=== PATIENT | female | born 1985 | race Caucasian/White ===

== ENCOUNTER → 2017-01-05 | Outpatient (CLI) | payer MEDICAID | LOC: LABMAIN 14:21 | PROVIDERS: ATTEND Obstetrics & Gynecology | DX: O20.0 Threatened abortion (principal) | CPT/HCPCS: 36415; 84702 ==

== ENCOUNTER → 2017-01-07 | Outpatient (CLI) | payer MEDICAID | END | disposition home or self-care (01) | LOC: LABMAIN 14:02 | PROVIDERS: ATTEND Obstetrics & Gynecology | DX: O20.0 Threatened abortion (principal); Z3A.00 Weeks of gestation of pregnancy not specified | CPT/HCPCS: 36415; 84702 ==

== ENCOUNTER → 2017-02-17 | Outpatient (CLI) | payer MEDICAID ==
[2017-02-17 10:26] LABS: CH 28.2; CHCM 34.9; HCT 35.6 % (34.0-46.0); HDW 2.72; HGB 12.8 gm/dL (11.4-16.0); MCH 29.2 pg (25.0-35.0); MCV 81.1 fL (80.0-100.0); Mean Platelet Volume 7.2; RBC 4.39 m/uL (3.80-5.40); RDW 12.5 % (11.5-15.5); WBC 7.3 k/uL (3.8-10.6)
[2017-02-17 14:28] LABS: Hepatitis B Surface Ag Index 0.05
[2017-02-17 15:48] LABS: Treponemal Ab Non-Reactive (Non-Reactive)
== END | disposition home or self-care (01) ==
LOC: LABWHC1 08:56
PROVIDERS: ATTEND Obstetrics & Gynecology
DX: Z34.90 Encounter for supervision of normal pregnancy, unspecified, unspecified trimester (principal)
CPT/HCPCS: 36415; 82950; 83036; 85027; 86762; 86780; 86850; 86900; 86901; 87086; 87340; 87390

== ENCOUNTER 2017-08-23 07:51 | Inpatient (IN) | payer MEDICAID ==
[2017-08-23] MEDS ORDERED: ceFAZolin IN SWFI 2 GM/20 ML SYRINGE IVP ONE (07:59)
[2017-08-23] MEDS ORDERED: CITRIC ACID-SODIUM CITRATE 15 ML CUP PO ONE (07:59)
[2017-08-23 08:14] VITALS: BMI 29.3
[2017-08-23 08:31] LABS: Basophils % (A) 0 %; Eosinophils # (A) 0.1 k/uL (0-0.7); Eosinophils % (A) 1 %; HCT 37.9 % (34.0-46.0); HGB 13.2 gm/dL (11.4-16.0); Lymphocytes # (A) 1.8 k/uL (1.0-4.8); Lymphocytes % (A) 27 %; MCH 27.7 pg (25.0-35.0); MCHC 34.8 g/dL (31.0-37.0); MCV 79.6 fL (80.0-100.0); Mean Platelet Volume 8.8; Monocytes # (A) 0.3 k/uL (0-1.0); Monocytes % (A) 5 %; Neutrophils # (A) 4.4 k/uL (1.3-7.7); Neutrophils % (A) 65 %; Platelet Count 179 k/uL (150-450); RBC 4.76 m/uL (3.80-5.40); RDW 13.1 % (11.5-15.5); WBC 6.7 k/uL (3.8-10.6)
[2017-08-23] MEDS: LACTATED RINGERS 1,000 ML IV SCH ×2 (09:44→10:11)
[2017-08-23] MEDS ORDERED: LACTATED RINGERS 1,000 ML IV SCH (09:45)
--- NOTE | 2017-08-23 10:19 | P.HPOB ---
History of Present Illness H&P Date: 08/23/17 Chief Complaint: 38-4/7 weeks, twin IUP, vertex/transverse presentation The patient is a 31-year-old 3 para 2 scissors or 2 admitted at 38-3/7 weeks as established by last menstrual period and confirmed by 6 week ultrasound. She is admitted with a known twin intrauterine with the fetus is presenting in vertex/transverse position. This is been the case for the last 6-8 weeks of . She has had no complications with her twin to include labor. She is known to be Rh- and received RhoGAM at 28 weeks. Group B strep status is negative. Obstetrical history: 3 para 2001 with 2 term vaginal deliveries. Current statistics are as listed above with a twin IUP. EDC of 2017 was established by last menstrual period and confirmed by 6 week ultrasound. Laboratory workup demonstrates a blood type of O- with a negative antibody screen. Rubella status is immune. The remainder of the laboratory workup was within normal limits. Early Glucola was within normal limits as was second trimester Glucola. Group B strep status is negative. Gynecologic history: Unremarkable with no history of any infections to include STDs. Review of Systems Review of systems is confined to history of present illness. Past Medical History Past Medical History: No Reported History History of Any Multi-Drug Resistant Organisms: None Reported Past Surgical History: Appendectomy, Orthopedic Surgery Additional Past Surgical History / Comment(s): right ankle with screws and pins. appendix, carcinoid tumor small intestine Past Anesthesia/Blood Transfusion Reactions: No Reported Reaction Past Psychological History: No Psychological Hx Reported Smoking Status: Former smoker Past Alcohol Use History: None Reported Additional Past Alcohol Use History / Comment(s): "smoked intermittent couple years quit 6 years ago" <1/2ppd Past Drug Use History: None Reported - Past Family History Mother Family Medical History: Hypertension Medications and Allergies Home Medications Medication Instructions Recorded Confirmed Type Pnv No.95/Ferrous Fum/Folic AC 1 each PO DAILY 08/22/17 08/22/17 History [ Multivitamin Tablet] Allergies Allergy/AdvReac Type Severity Reaction Status Date / Time No Known Allergies Allergy Verified 08/22/17 15:06 Exam - Vital Signs Vital signs: Vital Signs Temp Pulse Resp BP Pulse Ox 08/23/17 08:02 97.7 F 86 18 127/76 98 Intake and Output 08/22/17 08/23/17 08/23/17 22:59 06:59 14:59 Other: Weight 94.347 kg 90.265 kg Patient Weight 08/24/17 06:59 Weight 90.265 kg In general, this is a well-developed, well-nourished white female in no acute distress. Her heart has a regular rhythm and rate without murmur. Her lungs are clear to auscultation bilaterally in all jansen. Her abdomen is gravid, nondistended, has normal active bowel sounds, is soft, nontender, and without any palpable masses aside from uterine fundus. Her extremities without any cyanosis, clubbing, or significant edema. Digital cervical examination at this time is deferred. Results Result Diagrams: 08/23/17 08:25 Abnormal Lab Results - Last 24 Hours (Table) 08/23/17 Range/Units 08:25 MCV 79.6 L (80.0-100.0) fL Assessment and Plan (1) malposition, delivered, current hospitalization Current Visit: Yes Status: Acute Code(s): O32.9XX0 - MATERNAL CARE FOR MALPRESENTATION OF FETUS, UNSP, UNSP SNOMED Code(s): 903394943 (2) Twin Current Visit: Yes Status: Acute Code(s): O30.009 - TWIN , UNSP NUM PLCNTA & AMNIO SACS, UNSP TRIMESTER SNOMED Code(s): 60829826 Plan: The patient has been extensively counseled regarding the need for delivery if the twin infants are not in vertex/vertex presentation. The second fetus is in transverse presentation. As a result, she will be taken the operating room where she will undergo primary low-transverse section. The risks and complications of been thoroughly discussed and she has understood and agreed to proceed.
[2017-08-23] MEDS ORDERED: OXYTOCIN 10 UNIT/ML 1 ML VIAL ONE (10:48)
[2017-08-23] MEDS ORDERED: PHENYLEPHRINE-0.9% NACL SYG 1 MG/10 ML SYRINGE ONE (10:48)
[2017-08-23] MEDS ORDERED: METOCLOPRAMIDE 5 MG/ML 2 ML VIAL ONE (10:48)
[2017-08-23] MEDS ORDERED: ONDANSETRON 4 MG/2 ML VIAL ONE (10:48)
[2017-08-23] MEDS ORDERED: KETOROLAC 30 MG/ML 1 ML VIAL ONE (10:48)
[2017-08-23] MEDS ORDERED: fentaNYL (PF) 50 MCG/ML 2 ML AMP ONE (10:48)
[2017-08-23] MEDS ORDERED: MORPHINE SULFATE (PF) 0.3 MG/0.3 ML SYR ONE (10:48)
[2017-08-23] MEDS ORDERED: DEXAMETHASONE SOD PHOS (MDV) 100 MG/10 ML VIAL ONE (10:48)
[2017-08-23] MEDS ORDERED: NALBUPHINE 10 MG/ML AMPUL ONE (10:48)
[2017-08-23] MEDS ORDERED: diphenhydrAMINE 50 MG CAP PO PRN (11:56)
[2017-08-23] MEDS ORDERED: SIMETHICONE 80 MG CHEWABLE PO PRN (11:56)
[2017-08-23] MEDS ORDERED: diphenhydrAMINE 25 MG CAP PO PRN (11:56)
[2017-08-23] MEDS ORDERED: NALOXONE 0.4 MG/ML 1 ML VIAL IV PRN ×2 (11:56→13:05)
[2017-08-23] MEDS ORDERED: ONDANSETRON 4 MG/2 ML VIAL IVP PRN (11:56)
[2017-08-23] MEDS ORDERED: ZOLPIDEM 5 MG TAB PO PRN (11:56)
[2017-08-23] MEDS ORDERED: diphenhydrAMINE 50 MG/ML 1 ML VIAL IVP PRN ×2 (11:56)
[2017-08-23] MEDS ORDERED: METOCLOPRAMIDE 5 MG/ML 2 ML VIAL IVP PRN (11:56)
[2017-08-23] MEDS ORDERED: LANOLIN CREAM 5 GM TUBE TOPICAL PRN (11:56)
[2017-08-23] MEDS ORDERED: OXYTOCIN 20 UNITS/1000 ML NS 1,000 ML IV SCH (12:00)
--- NOTE | 2017-08-23 12:09 | P.OP ---
Date of Procedure: 08/23/17 Preoperative Diagnosis: #1. 38-4/7 weeks twin intrauterine #2. Vertex/transverse presentation #3. Rh- Postoperative Diagnosis: Same Procedure(s) Performed: #1. Primary low-transverse section Anesthesia: spinal Surgeon: Cornelius Cabral Vocational Education Teacher #1: Rachelle Malone Estimated Blood Loss (ml): 600 IV fluids (ml): 500 Urine output (ml): 500 Pathology: other (Placenta for both twin A and twin B) Condition: stable Disposition: floor Operative Findings: The patient had been extensively counseled regarding the need for twin B to be delivered by section if not in vertex presentation. She agreed to the procedure as noted above. She is taken the operating room where she was delivered of a viable twin a baby girl weighing 7 lbs. 0 oz. with Apgars of 9 at 1 minute and 9 at 5 minutes delivered in the vertex presentation. Twin B was delivered as a viable male infant weighing 6 lbs. 5 oz. with Apgars of 8 at 1 minute and 8 at 5 minutes again delivered in the vertex presentation. The placentas were delivered manually, intact, and grossly normal with a grossly normal three-vessel cords for each. The uterus, tubes, and ovaries were entirely normal to inspection. Description of Procedure: The patient was prepped and draped in usual fashion after spinal anesthesia was administered by the anesthesiologist. A Pfannenstiel incision was made and extended into the abdominal cavity without difficulty. A 2 cm transverse incision was made in the lower uterine segment well above the level of the bladder flap to enter the uterus at which time clear fluid was noted on twin A. The incision was extended in both directions using the bandage scissors. Twin A's head was noted to be deep within the pelvis and was elevated up and through the incision where the nose and mouth were thoroughly suctioned. The infant was then delivered onto the field where the cord was doubly clamped, cut , and the passed for resuscitative measures with weight and Apgars as noted above. Twin B was then noted to be presenting slightly higher in the uterus but in vertex presentation. He was guided down to the incision at which time the amniotic membranes were ruptured for clear fluid. The head was delivered up and through the incision where the nose and mouth were again thoroughly suctioned. The remainder of the infant was delivered onto the field where the cord was doubly clamped, cut, and the the infant passed for resuscitative measures with weight and Apgars again as noted above. cord blood was collected from each of the 2 cords. The placentas were then delivered manually and intact as noted above. The uterus was exteriorized and the interior cavity of the uterus swept of any remaining placental or membranous fragments. The margins of the incision were grasped with Pagan clamps and the incision closed in 2 layers. The first layer was a running locking stitch of 0 chromic catgut from margin to margin followed by a running imbricating stitch of 0 chromic catgut from margin to margin. There was excellent hemostasis present. The posterior cul-de-sac was suctioned with a guard and the uterine and ovarian findings were normal as noted above. The uterus was replaced within the abdominal cavity and the gutters swept of any remaining blood, fluid, or clot. The incision was reexamined and noted to be hemostatic. The parietal peritoneum was loosely reapproximated and layer of muscles examined and made hemostatic with the Bovie. The fascia was closed with a single running stitch of 0 Vicryl proceeding from one margin to the other. The subcutaneous tissues were irrigated, made hemostatic with the Bovie , and, as they were less than 1 cm in depth, not closed. The skin was reapproximated with a running subcuticular stitch of 4-0 Vicryl followed by half -inch Steri-Strips placed with Mastisol. Estimated blood loss for the entire case was approximately 600 mL. There were no complications. All sponge, instrument, and needle counts were correct. Both mother and infants are resting comfortably in recovery the twin A has been taken to the special care nursery for observation secondary to decreased oxygen saturation.
[2017-08-23] MEDS ORDERED: traMADol 50 MG TAB PO PRN (12:13)
[2017-08-23] MEDS ORDERED: MORPHINE SULFATE 4 MG/ML SYRINGE IVP PRN (13:05)
[2017-08-23] MEDS ORDERED: Rhogam IMMUNE GLOBULIN 1,500 UNIT/1 ML IM ONE (19:15)
[2017-08-23] MEDS: SENNOSIDES-DOCUSATE SODIUM 1 EACH TAB PO SCH (19:57)
[2017-08-23] MEDS: KETOROLAC 30 MG/ML 1 ML VIAL IVP PRN (19:58)
[2017-08-24] MEDS: KETOROLAC 30 MG/ML 1 ML VIAL IVP PRN ×2 (02:03→08:47)
[2017-08-24] MEDS: ACETAMINOPHEN TAB 325 MG TAB PO PRN ×3 (04:17→19:44)
[2017-08-24] MEDS: LACTATED RINGERS 1,000 ML IV SCH ×2 (06:16→06:17)
[2017-08-24 08:33] LABS: Basophils % (A) 0 %; Eosinophils # (A) 0.1 k/uL (0-0.7); Eosinophils % (A) 0 %; HCT 31.6 % (34.0-46.0); Lymphocytes # (A) 2.4 k/uL (1.0-4.8); Lymphocytes % (A) 22 %; MCH 27.9 pg (25.0-35.0); MCHC 34.6 g/dL (31.0-37.0); MCV 80.6 fL (80.0-100.0); Mean Platelet Volume 8.7; Monocytes # (A) 0.5 k/uL (0-1.0); Monocytes % (A) 5 %; Neutrophils # (A) 7.7 k/uL (1.3-7.7); Neutrophils % (A) 71 %; Platelet Count 139 k/uL (150-450); RBC 3.93 m/uL (3.80-5.40); RDW 13.1 % (11.5-15.5); WBC 10.8 k/uL (3.8-10.6)
--- NOTE | 2017-08-24 08:36 | P.PNOBGPC ---
Subjective - Subjective Patient reports: Reports appetite normal, Reports voiding normally, Reports pain well controlled, Reports ambulating normally : doing well Objective - Vital Signs Latest vital signs: Vital Signs Temp Pulse Resp BP Pulse Ox 08/24/17 06:00 12 08/24/17 04:00 98 F 64 16 105/66 98 08/24/17 02:00 14 08/24/17 00:00 97.6 F 68 16 98/63 08/23/17 22:00 14 08/23/17 20:00 97.8 F 78 16 131/77 98 08/23/17 18:00 16 08/23/17 16:05 98.4 F 61 16 113/80 96 08/23/17 13:45 97.1 F L 69 16 113/74 08/23/17 13:15 97.2 F L 68 16 118/76 96 08/23/17 13:05 17 96 08/23/17 12:45 65 17 106/58 95 08/23/17 12:30 71 18 114/67 95 08/23/17 12:15 63 18 105/63 96 08/23/17 12:00 96.9 F L 72 18 107/56 95 08/23/17 11:45 75 18 113/58 94 L Intake and Output 08/23/17 08/24/17 08/24/17 22:59 06:59 14:59 Output Total 3600 800 Balance -3600 -800 Output: Urine 3600 800 Uretheral (Reyes) 1200 Other: # Voids 1 - Exam Extremities: Present: normal Abdomen: Present: normal appearance, soft. Absent: distention, tenderness Incision: Present: normal, dry (Moderate using overnight, now dry), intact Uterus: Present: normal, firm (Uterine fundus as tonic and nontender just below the umbilicus) Assessment and Plan (1) malposition, delivered, current hospitalization Current Visit: Yes Status: Acute Code(s): O32.9XX0 - MATERNAL CARE FOR MALPRESENTATION OF FETUS, UNSP, UNSP SNOMED Code(s): 301604980 (2) Twin Current Visit: Yes Status: Acute Code(s): O30.009 - TWIN , UNSP NUM PLCNTA & AMNIO SACS, UNSP TRIMESTER SNOMED Code(s): 18091569 (3) S/P section Current Visit: Yes Status: Acute Code(s): Z98.891 - HISTORY OF UTERINE SCAR FROM PREVIOUS SURGERY SNOMED Code(s): 154952095 Plan: Continue routine postoperative care. I would anticipate discharge home tomorrow pending no complications with either the patient or either of her twins. I have encouraged ambulation in the halls and have advanced her diet to regular.
[2017-08-24] MEDS: SENNOSIDES-DOCUSATE SODIUM 1 EACH TAB PO SCH ×2 (08:48→19:57)
--- NOTE | 2017-08-24 09:21 | P.PN ---
Progress Note - Text Date: 08/24/2017 Time: 706 The patient is status post section Vital signs stable VAS:0-10 Patient has no complaints of pain. The patient incurred some minimal itching yesterday, this itching is now subsiding. Pain meds to be managed by service.
[2017-08-24 10:42] VITALS: RESP 16
[2017-08-24] MEDS: IBUPROFEN 600 MG TAB PO PRN ×2 (15:59→21:56)
[2017-08-25] MEDS: ACETAMINOPHEN TAB 325 MG TAB PO PRN ×2 (00:05→07:34)
[2017-08-25 01:24] VITALS: TEMP 98.4
[2017-08-25] MEDS: IBUPROFEN 600 MG TAB PO PRN (05:42)
[2017-08-25] MEDS: SENNOSIDES-DOCUSATE SODIUM 1 EACH TAB PO SCH (07:34)
--- NOTE | 2017-08-25 07:34 | P.DS ---
Providers Date of admission: 08/23/17 07:51 Expected date of discharge: 08/25/17 Attending physician: Cornelius Cabral Primary care physician: Sonya Craig - Discharge Diagnosis(es) (1) malposition, delivered, current hospitalization Current Visit: Yes Status: Acute (2) Twin Current Visit: Yes Status: Acute (3) S/P section Current Visit: Yes Status: Acute Hospital Course: The patient is a 31-year-old 3 para 2001 admitted at 38-3/7 weeks by good dating parameters. She is admitted with a known twin gestation with the fetus is in vertex/transverse presentation. She was counseled regarding the concerns for the second fetus being in a non-vertex presentation and agreed to undergo primary low-transverse section. She was taken to the operating room where she was delivered of a viable twin A baby girl weighing 7 lbs. 0 oz. with Apgars of 9 at 1 minute and 9 at 5 minutes followed by a viable twin B baby boy weighing 6 lbs. 5 oz. with Apgars of 8 at 1 minute and 8 at 5 minutes. The patient's postoperative course was entirely unremarkable with vital signs remained stable and her temperature was afebrile throughout. She was deemed stable for discharge by day #2 and was discharged home to follow-up in the office in 2 weeks for an incision check and 6 weeks routinely. Discharge instructions included calling for any significantly increased bleeding or foul-smelling lochia, significantly increased fever or abdominal pain, perineal complaints, breast complaints, incisional complaints, or anything else that concerned her. She was additionally instructed to have nothing in the vagina for at least 6 weeks time to include intercourse. She was last instructed to do no driving until off of all pain medications or 2 weeks' time, whichever came first. She understood all of her instructions and agrees follow up as noted above. Discharge medications included continued vitamins as she has opted to breast-feed. She additionally was provided with a prescription for Ultram 50 mg one by mouth every 4-6 hours as needed when necessary pain, #30 dispensed with no refills. Maternal blood type is O- and cord blood was sent from both infants for evaluation for the necessity of RhoGAM. Rubella status is immune. Discharge hemoglobin and hematocrit were 11.0 and 31.6 respectively. Procedures: #1. Primary low-transverse section, twin delivery Patient Condition at Discharge: Good Plan - Discharge Summary Discharge Rx Participant: Yes New Discharge Prescriptions: No Action Pnv No.95/Ferrous Fum/Folic AC [ Multivitamin Tablet] 1 each PO DAILY Discharge Medication List Pnv No.95/Ferrous Fum/Folic AC [ Multivitamin Tablet] 1 each PO DAILY [History] Follow up Appointment(s)/Referral(s): Cornelius Cabral MD [STAFF PHYSICIAN] - 2 Weeks Discharge Disposition: HOME SELF-CARE
[2017-08-25 07:55] VITALS: BP 121/74; PULSE 75
== END 2017-08-25 11:15 | disposition home or self-care (01) | DRG 766 ==
LOC: 4FBP 07:51
PROVIDERS: ADMIT Obstetrics & Gynecology; ATTEND Obstetrics & Gynecology
PROC: 10D00Z1 Extraction of Products of Conception, Low, Open Approach (ICD-10-PCS; principal; 2017-08-23 11:07)
DX: O30.043 Twin pregnancy, dichorionic/diamniotic, third trimester (principal); Z37.2 Twins, both liveborn; O32.2XX1 Maternal care for transverse and oblique lie, fetus 1; Z3A.38 38 weeks gestation of pregnancy; Z87.891 Personal history of nicotine dependence
CPT/HCPCS: 85025; 85461; 86850; 86900; 86901; 88307

== ENCOUNTER 2019-07-23 07:01 | Day surgery (SDC) | payer MEDICAID ==
[2019-07-19 11:32] VITALS: BMI 25.1
[~2019-07-23 07:01] MED LIST: DEXAMETHASONE SOD PHOSPHATE 10 MG/ML 1 ML VIAL IV ONE; HEPARIN SODIUM,PORCINE 5,000 UNIT/ML 1 ML VIAL SQ ONE; HYDROmorphone 0.5 MG/0.5 ML SYRINGE IVP PRN; LACTATED RINGERS 1,000 ML IV SCH; LIDOCAINE 1% 20 ML VIAL (10MG/ML) FOR IV START INTRADERMA PRN; ONDANSETRON 4 MG/2 ML VIAL IVP ONE; Pre Op ABX Message 1 EACH MISC MISCELLANE ONE
[2019-07-23 07:21] VITALS: RESP 16; TEMP 97.4
--- NOTE | 2019-07-23 07:50 | P.GSHP ---
History of Present Illness H&P Date: 07/23/19 Chief Complaint: Left back lesion 33-year-old female seen in the office in May. Patient had a recent infection at a nevus site left upper back. An I&D was performed for this at that time. The nevus has been there since . Other than the recent infection no significant changes. Concerned about recurrence. Past Medical History Past Medical History: No Reported History History of Any Multi-Drug Resistant Organisms: None Reported Past Surgical History: Appendectomy, Section, Orthopedic Surgery Additional Past Surgical History / Comment(s): right ankle with screws and pins, carcinoid tumor small intestine Past Anesthesia/Blood Transfusion Reactions: No Reported Reaction Smoking Status: Former smoker - Past Family History Mother Family Medical History: Hypertension Medications and Allergies Home Medications Medication Instructions Recorded Confirmed Type Multivitamins, Thera [Multivitamin 1 tab PO DAILY 07/19/19 07/23/19 History (formulary)] Allergies Allergy/AdvReac Type Severity Reaction Status Date / Time No Known Allergies Allergy Verified 07/23/19 07:19 Surgical - Exam Vital Signs Temp Pulse Resp BP Pulse Ox 97.4 F L 77 16 114/75 98 07/23/19 07:18 07/23/19 07:18 07/23/19 07:18 07/23/19 07:18 07/23/19 07:18 Physical exam: General: Well-developed, well-nourished HEENT: Normocephalic, sclerae nonicteric Abdomen: Nontender, nondistended Extremities: No edema, left upper back with 2 x 1.5 cm raised nevus, flesh- colored, no satellite lesions, nontender Neuro: Alert and oriented Assessment and Plan (1) Nevus of back Narrative/Plan: 33-year-old female with atypical nevus left upper back with recent infection. We'll proceed with surgical excision. Risks of bleeding, infection, recurrence, dehiscence, scarring reviewed. She understands and wished to proceed. Current Visit: Yes Status: Acute Code(s): D22.5 - MELANOCYTIC NEVI OF TRUNK SNOMED Code(s): 55364141
[2019-07-23] MEDS ORDERED: MIDAZOLAM 2 MG/2 ML VIAL ONE (08:08)
[2019-07-23] MEDS ORDERED: PROPOFOL 10 MG/ML 20 ML VIAL IV ONE (08:08)
[2019-07-23] MEDS ORDERED: fentaNYL (PF) 50 MCG/ML 2 ML AMP ONE (08:08)
[2019-07-23] MEDS ORDERED: LIDOCAINE 1% INJ 10MG/ML (20 ML MDV) ONE (08:08)
[2019-07-23] MEDS ORDERED: BUPIVACAINE (PF) 0.25% 30 ML VIAL SQ ONE ×2 (08:27→08:47)
[2019-07-23] MEDS ORDERED: SODIUM CHLORIDE 0.9% 100 ML with ceFAZolin 2,000 MG IV ONE ×2 (08:29)
[2019-07-23] MEDS ORDERED: BACITRACIN OINT 1 EACH PACKET TOPICAL ONE (08:47)
[2019-07-23] MEDS ORDERED: HYDROcodone/APAP 5-325MG 1 EACH TAB PO PRN (08:57)
[2019-07-23] MEDS ORDERED: NALOXONE 0.4 MG/ML 1 ML VIAL IV PRN (08:57)
--- NOTE | 2019-07-23 09:01 | P.PCN ---
Date of Procedure: 07/23/19 Procedure(s) Performed: PREOPERATIVE DIAGNOSIS: Left back lesion POSTOPERATIVE DIAGNOSIS: Same PROCEDURE: Excision left back lesion, intermediate closure 2.5 cm SURGEON: Katie EBL: 5 mL ANESTHESIA: Sedation COMPLICATIONS: None OPERATIVE PROCEDURE: The patient was placed in the right decubitus position. The patient's left upper back was prepped and draped in usual sterile fashion. The tissues around the lesion were localized. An elliptical incision was made around the mass. The subcutaneous tissues were dissected sharply. This lesion measured 2.5 x 1.5 cm. This was sent to pathology. Flaps are raised in the deep subcutaneous layers. The subcutaneous tissues were then reapproximated using 3-0 Vicryl sutures. The skin was then reapproximated using interrupted simple and mattress 4-0 nylon sutures. Sterile dressings were applied. DISPOSITION: Stable to recovery room
[2019-07-23 09:27] VITALS: BP 103/71; PULSE 64
== END 2019-07-23 09:33 | disposition home or self-care (01) ==
LOC: OR 07:01
PROVIDERS: ATTEND Surgery
DX: Q82.5 Congenital non-neoplastic nevus (principal); Z90.49 Acquired absence of other specified parts of digestive tract; Z98.891 History of uterine scar from previous surgery; Z98.890 Other specified postprocedural states; Z87.891 Personal history of nicotine dependence; Z86.012 Personal history of benign carcinoid tumor; Z82.49 Family history of ischemic heart disease and other diseases of the circulatory system
CPT/HCPCS: 81025; 88305; 11403; 12031; J2250; J1644; J1100; J2405; J0690; J2001; J3010; J2704

== ENCOUNTER → 2020-09-25 | Outpatient (CLI) | payer MEDICAID | END | disposition home or self-care (01) | LOC: LABMAIN 22:40 | PROVIDERS: ATTEND Emergency Medicine | DX: U07.1 COVID-19 (principal) | CPT/HCPCS: 87635 ==

== ENCOUNTER → 2022-01-25 | Outpatient (CLI) | payer MEDICAID | END | disposition home or self-care (01) | LOC: LABMAIN 22:24 | PROVIDERS: ATTEND Emergency Medicine | DX: Z20.822 Contact with and (suspected) exposure to COVID-19 (principal) | CPT/HCPCS: 87635 ==

== ENCOUNTER 2023-06-30 21:24 | Emergency (ER) | payer MEDICAID ==
[2023-06-30 21:38] VITALS: BP 139/85; PULSE 105; RESP 20; TEMP 99.3
[2023-06-30] MEDS ORDERED: KETOROLAC 15 MG/ML 1 ML VIAL IVP STA (21:39)
[2023-06-30] MEDS ORDERED: SODIUM CHLORIDE 0.9% 500 ML 500 ML IV STA (21:39)
--- NOTE | 2023-06-30 21:57 | ED ---
Abdominal Pain HPI - General Chief Complaint: Abdominal Pain Stated Complaint: Right flank pain Time Seen by Provider: 06/30/23 21:34 Source: patient Mode of arrival: ambulatory Limitations: no limitations - History of Present Illness Initial Comments: Is a 37-year-old woman who presents to have evaluation for right flank pain. The patient states that there were some mild symptoms going back a few days, but it became much worse early today. Patient states that she also has noticed couple days of having some mild dysuria at the end of urination. Patient has not noted fever or chills. No nausea, vomiting, diarrhea. MD Complaint: flank pain -: days(s) Location: R flank Radiation: none Migration to: no migration Severity: moderate Quality: aching Consistency: constant Improves With: nothing Worsens With: nothing Associated Symptoms: dysuria - Related Data Home Medications Medication Instructions Recorded Confirmed Multivitamins, Thera [Multivitamin 1 tab PO DAILY 07/19/19 07/23/19 (formulary)] Previous Rx's Medication Instructions Recorded Cephalexin [Keflex] 500 mg PO Q6HR #28 cap 06/30/23 Allergies Allergy/AdvReac Type Severity Reaction Status Date / Time No Known Allergies Allergy Verified 06/30/23 21:32 Review of Systems ROS Statement: Those systems with pertinent positive or pertinent negative responses have been documented in the HPI. ROS Other: All systems not noted in ROS Statement are negative. Constitutional: Denies: fever, chills Respiratory: Denies: cough, dyspnea Cardiovascular: Denies: chest pain, palpitations Gastrointestinal: Reports: abdominal pain. Denies: nausea, vomiting, diarrhea, constipation Genitourinary: Reports: dysuria. Denies: frequency, hematuria, abnormal menses Musculoskeletal: Denies: back pain Skin: Denies: rash Neurological: Denies: headache, weakness, numbness Past Medical History Past Medical History: No Reported History History of Any Multi-Drug Resistant Organisms: None Reported Past Surgical History: Appendectomy, Section, Orthopedic Surgery Additional Past Surgical History / Comment(s): right ankle with screws and pins, carcinoid tumor small intestine Past Anesthesia/Blood Transfusion Reactions: No Reported Reaction Past Psychological History: No Psychological Hx Reported Smoking Status: Never smoker Past Alcohol Use History: None Reported Past Drug Use History: None Reported - Past Family History Mother Family Medical History: Hypertension General Exam Limitations: no limitations General appearance: alert, in no apparent distress Head exam: Present: atraumatic, normocephalic Eye exam: Present: normal appearance. Absent: scleral icterus, conjunctival injection ENT exam: Present: normal oropharynx Neck exam: Present: normal inspection Respiratory exam: Present: normal lung sounds bilaterally. Absent: respiratory distress, wheezes, rales, rhonchi, stridor Cardiovascular Exam: Present: regular rate, normal rhythm, normal heart sounds. Absent: systolic murmur, diastolic murmur, rubs, gallop GI/Abdominal exam: Present: soft. Absent: distended, tenderness, guarding, rebound, rigid, mass Extremities exam: Present: normal inspection, normal capillary refill. Absent: pedal edema, calf tenderness Back exam: Present: normal inspection, CVA tenderness (R). Absent: CVA tenderness (L) Neurological exam: Present: alert, normal gait Skin exam: Present: warm, dry, intact, normal color. Absent: rash Course Vital Signs 06/30/23 21:30 Temperature 99.3 F Pulse Rate 105 H Respiratory 20 Rate Blood Pressure 139/85 O2 Sat by Pulse 98 Oximetry Medical Decision Making - Medical Decision Making Was pt. sent in by a medical professional or institution (, PA, TRAFFIC ENGINEER, urgent care, hospital, or fdc...) When possible be specific @ -[No] Did you speak to anyone other than the patient for history (EMS, parent, family, police, friend...)? What history was obtained from this source @ -[No] Did you review nursing and triage notes (agree or disagree)? Why? @ -[I reviewed and agree with nursing and triage notes] Were old charts reviewed (outside hosp., previous admission, EMS record, old EKG, old radiological studies, urgent care reports/EKG's, fdc records)? Report findings @ -[No old charts were reviewed] Differential Diagnosis (chest pain, altered mental status, abdominal pain women, abdominal pain men, vaginal bleeding, weakness, fever, dyspnea, syncope, headache, dizziness, GI bleed, back pain, seizure, CVA, palpatations, mental health, musculoskeletal)? @ -[Differential Abdominal Pain Women: Appendicitis, Cholecystitis, diverticulosis, ischemic bowel, pancreatitis, hepatitis, UTI, gastroenteritis, AAA, incarcerated hernia, bowel obstruction, constipation, inflammatory bowel, hepatitis, peptic ulcer disease, splenic i nfarction, perforated viscus, vulvitis, ovarian torsion, PID, kidney stone, placenta abruption, this is not meant to be an all-inclusive list EKG interpreted by me (3pts min.). @ -[As above] X-rays interpreted by me (1pt min.). @ -[None done] CT interpreted by me (1pt min.). @ -[None done] U/S interpreted by me (1pt. min.). @ -[None done] What testing was considered but not performed or refused? (CT, X-rays, U/S, labs)? Why? @ -[None] What meds were considered but not given or refused? Why? @ -[None] Did you discuss the management of the patient with other professionals (professionals i.e. , PA, TRAFFIC ENGINEER, lab, RT, psych nurse, psychotherapist social worker, seconds handler, teacher, account officer, case preparer and liner)? Give summary @ -[No] Was smoking cessation discussed for >3mins.? @ -[No] Was critical care preformed (if so, how long)? @ -[No] Were there social determinants of health that impacted care today? How? (Homelessness, low income, unemployed, alcoholism, drug addiction, transportation, low edu. Level, literacy, decrease access to med. care, assisted, rehab)? @ -[No] Was there de-escalation of care discussed even if they declined (Discuss DNR or withdrawal of care, Hospice)? DNR status @ -[No] What co-morbidities impacted this encounter? (DM, HTN, Smoking, COPD, CAD, Can cer, CVA, ARF, Chemo, Hep., AIDS, mental health diagnosis, sleep apnea, morbid obesity)? @ -[None] Was patient admitted / discharged? Hospital course, mention meds given and route, prescriptions, significant lab abnormalities, going to OR and other pertinent info. @ -[Patient is 37-year-old woman presenting with history and physical strongly suggestive of pyelonephritis, the workup consistent with this. The patient is started on antibiotic treatment. We discussed having CT to rule out stone, but at this point patient not presenting like kidney stone. We discussed that she must return to have imaging if there is not significant improvement over the course of the day or if there is any worsening. Undiagnosed new problem with uncertain prognosis? @ -[No] Drug Therapy requiring intensive monitoring for toxicity (Heparin, Nitro, Insulin, Cardizem)? @ -[No] Were any procedures done? @ -[No] Diagnosis/symptom? @ -[Acute pyelonephritis Acute, or Chronic, or Acute on Chronic? @ -[Acute Uncomplicated (without systemic symptoms) or Complicated (systemic symptoms)? @ -[Uncomplicated Side effects of treatment? @ -[No] Exacerbation, Progression, or Severe Exacerbation? @ -[No] Poses a threat to life or bodily function? How? (Chest pain, [place], [place], pneumonia, PE, COPD, DKA, ARF, appy, cholecystitis, CVA, Diverticulitis, Homicidal, Suicidal, threat to staff... and all critical care pts) @ -[There is low likelihood an otherwise healthy patient however there does remain small risk of morbidity and mortality associated with pyelonephritis therefore close follow-up and return parameters discussed - Lab Data Result diagrams: 06/30/23 21:56 06/30/23 21:56 Lab Results 06/30/23 06/30/23 06/30/23 Range/Units 21:56 21:56 21:56 WBC 11.4 H (3.8-10.6) k/uL RBC 5.07 (3.80-5.40) m/uL Hgb 14.3 (11.4-16.0) gm/dL Hct 41.2 (34.0-46.0) % MCV 81.4 (80.0-100.0) fL MCH 28.3 (25.0-35.0) pg MCHC 34.8 (31.0-37.0) g/dL RDW 12.1 (11.5-15.5) % Plt Count 203 (150-450) k/uL MPV 7.5 Neutrophils % 72 % Lymphocytes % 22 % Monocytes % 4 % Eosinophils % 1 % Basophils % 0 % Neutrophils # 8.1 H (1.3-7.7) k/uL Lymphocytes # 2.5 (1.0-4.8) k/uL Monocytes # 0.5 (0-1.0) k/uL Eosinophils # 0.1 (0-0.7) k/uL Basophils # 0.0 (0-0.2) k/uL Sodium 139 (137-145) mmol/L Potassium 3.9 (3.5-5.1) mmol/L Chloride 102 (98-107) mmol/L Carbon Dioxide 24 (22-30) mmol/L Anion Gap 13 mmol/L BUN 16 (7-17) mg/dL Creatinine 0.70 (0.52-1.04) mg/dL Est GFR (CKD-EPI)AfAm >90 (>60 ml/min/1.73 sqM) Est GFR (CKD-EPI)NonAf >90 (>60 ml/min/1.73 sqM) Glucose 104 H (74-99) mg/dL Plasma Lactic Acid [place]min 1.2 (0.7-2.0) mmol/L Calcium 9.5 (8.4-10.2) mg/dL Total Bilirubin 0.5 (0.2-1.3) mg/dL AST 24 (14-36) U/L ALT 24 (4-34) U/L Alkaline Phosphatase 73 (38-126) U/L Total Protein 7.3 (6.3-8.2) g/dL Albumin 4.3 (3.5-5.0) g/dL Amylase 67 (30-110) U/L Lipase 128 (23-300) U/L Urine Color Urine Appearance (Clear) Urine pH (5.0-8.0) Ur Specific [place] (1.001-1.035) Urine Protein (Negative) Urine Glucose (UA) (Negative) Urine Ketones (Negative) Urine Blood (Negative) Urine Nitrite (Negative) Urine Bilirubin (Negative) Urine Urobilinogen (<2.0) mg/dL Ur Leukocyte Esterase (Negative) Urine RBC (0-5) /hpf Urine WBC (0-5) /hpf Ur Squamous Epith Cells (0-4) /hpf Urine Bacteria (None) /hpf Hyaline Casts (0-2) /lpf Urine Mucus (None) /hpf Urine HCG, Qual (Not Detectd) 06/30/23 06/30/23 Range/Units 21:56 21:56 WBC (3.8-10.6) k/uL RBC (3.80-5.40) m/uL Hgb (11.4-16.0) gm/dL Hct (34.0-46.0) % MCV (80.0-100.0) fL MCH (25.0-35.0) pg MCHC (31.0-37.0) g/dL RDW (11.5-15.5) % Plt Count (150-450) k/uL MPV Neutrophils % % Lymphocytes % % Monocytes % % Eosinophils % % Basophils % % Neutrophils # (1.3-7.7) k/uL Lymphocytes # (1.0-4.8) k/uL Monocytes # (0-1.0) k/uL Eosinophils # (0-0.7) k/uL Basophils # (0-0.2) k/uL Sodium (137-145) mmol/L Potassium (3.5-5.1) mmol/L Chloride (98-107) mmol/L Carbon Dioxide (22-30) mmol/L Anion Gap mmol/L BUN (7-17) mg/dL Creatinine (0.52-1.04) mg/dL Est GFR (CKD-EPI)AfAm (>60 ml/min/1.73 sqM) Est GFR (CKD-EPI)NonAf (>60 ml/min/1.73 sqM) Glucose (74-99) mg/dL Plasma Lactic Acid [place] (0.7-2.0) mmol/L Calcium (8.4-10.2) mg/dL Total Bilirubin (0.2-1.3) mg/dL AST (14-36) U/L ALT (4-34) U/L Alkaline Phosphatase (38-126) U/L Total Protein (6.3-8.2) g/dL Albumin (3.5-5.0) g/dL Amylase (30-110) U/L Lipase (23-300) U/L Urine Color Yellow Urine Appearance Clear (Clear) Urine pH 7.0 (5.0-8.0) Ur Specific [place] 1.012 (1.001-1.035) Urine Protein 1+ H (Negative) Urine Glucose (UA) Negative (Negative) Urine Ketones Negative (Negative) Urine Blood Moderate H (Negative) Urine Nitrite Negative (Negative) Urine Bilirubin Negative (Negative) Urine Urobilinogen <2.0 (<2.0) mg/dL Ur Leukocyte Esterase Large H (Negative) Urine RBC 44 H (0-5) /hpf Urine WBC >182 H (0-5) /hpf Ur Squamous Epith Cells 3 (0-4) /hpf Urine Bacteria Many H (None) /hpf Hyaline Casts 3 H (0-2) /lpf Urine Mucus Rare H (None) /hpf Urine HCG, Qual Not Detected (Not Detectd) Disposition Clinical Impression: Urinary tract infection Disposition: HOME SELF-CARE Condition: Good Prescriptions: Cephalexin [Keflex] 500 mg PO Q6HR #28 cap Is patient prescribed a controlled substance at d/c from ED?: No Referrals: None,Stated [Primary Care Provider] - 1-2 days
[2023-06-30 22:11] LABS: Basophils % (A) 0 %; Eosinophils # (A) 0.1 k/uL (0-0.7); Eosinophils % (A) 1 %; HCT 41.2 % (34.0-46.0); HGB 14.3 gm/dL (11.4-16.0); Lymphocytes # (A) 2.5 k/uL (1.0-4.8); Lymphocytes % (A) 22 %; MCH 28.3 pg (25.0-35.0); MCHC 34.8 g/dL (31.0-37.0); MCV 81.4 fL (80.0-100.0); Mean Platelet Volume 7.5; Monocytes # (A) 0.5 k/uL (0-1.0); Monocytes % (A) 4 %; Neutrophils # (A) 8.1 k/uL (1.3-7.7); Neutrophils % (A) 72 %; Platelet Count 203 k/uL (150-450); RBC 5.07 m/uL (3.80-5.40); RDW 12.1 % (11.5-15.5); WBC 11.4 k/uL (3.8-10.6)
[2023-06-30 22:17] LABS: Appearance,Urine Clear (Clear); Bacteria,Urine Many /hpf; Bilirubin,Urine Negative (Negative); Blood,Urine Moderate (Negative); Color,Urine Yellow; Glucose,Urine (UA) Negative (Negative); Hyaline Casts,Urine 3 /lpf (0-2); Ketones,Urine Negative (Negative); Leukocyte Esterase,Urine Large (Negative); Mucus,Urine Rare /hpf; Nitrite,Urine Negative (Negative); Protein,Urine 1+ (Negative); RBC,Urine 44 /hpf (0-5); Specific Gravity,Urine 1.012 (1.001-1.035); Squamous Epithelial Cell,Urine 3 /hpf (0-4); Urobilinogen,Urine <2.0 mg/dL (<2.0); WBC,Urine >182 /hpf (0-5)
[2023-06-30 22:20] LABS: ALT 24 U/L (4-34); AST 24 U/L (14-36); African American GFR (CKD) >90 (>60 ml/min/1.73 sqM); Albumin 4.3 g/dL (3.5-5.0); Alkaline Phosphatase 73 U/L (38-126); Amylase 67 U/L (30-110); Anion Gap 13 mmol/L; Blood Urea Nitrogen 16 mg/dL (7-17); Calcium 9.5 mg/dL (8.4-10.2); Carbon Dioxide 24 mmol/L (22-30); Chloride 102 mmol/L (98-107); Glucose 104 mg/dL (74-99); Lipase 128 U/L (23-300); Non-African American GFR(CKD) >90 (>60 ml/min/1.73 sqM); Potassium 3.9 mmol/L (3.5-5.1); Sodium 139 mmol/L (137-145); Total Bilirubin 0.5 mg/dL (0.2-1.3); Total Protein 7.3 g/dL (6.3-8.2)
== END 2023-07-01 00:06 | disposition home or self-care (01) ==
LOC: EC 21:24
DX: N39.0 Urinary tract infection, site not specified (principal)
CPT/HCPCS: 36415; 80053; 82150; 83605; 83690; 85025; 81001; 81025; 87086; 87077; 87186; 99284; 96365; 96375; 96361; J0696; J1885

== ENCOUNTER 2024-04-17 22:34 | Emergency (ER) | payer MEDICAID ==
[2024-04-17 22:39] VITALS: BP 133/77; PULSE 84; RESP 18; TEMP 98.7
[2024-04-17 23:18] LABS: Basophils # (A) 0.1 k/uL (0-0.2); Basophils % (A) 1 %; Eosinophils # (A) 0.1 k/uL (0-0.7); Eosinophils % (A) 1 %; HCT 43.6 % (34.0-46.0); HGB 14.6 gm/dL (11.4-16.0); Lymphocytes # (A) 3.2 k/uL (1.0-4.8); Lymphocytes % (A) 31 %; MCH 27.7 pg (25.0-35.0); MCHC 33.5 g/dL (31.0-37.0); MCV 82.7 fL (80.0-100.0); Mean Platelet Volume 7.6; Monocytes # (A) 0.4 k/uL (0-1.0); Monocytes % (A) 4 %; Neutrophils # (A) 6.3 k/uL (1.3-7.7); Neutrophils % (A) 61 %; Platelet Count 251 k/uL (150-450); RBC 5.28 m/uL (3.80-5.40); RDW 12.4 % (11.5-15.5); WBC 10.2 k/uL (3.8-10.6)
[2024-04-17 23:34] LABS: ALT 23 U/L (4-34); AST 28 U/L (14-36); African American GFR (CKD) >90 (>60 ml/min/1.73 sqM); Albumin 4.5 g/dL (3.5-5.0); Alkaline Phosphatase 59 U/L (38-126); Anion Gap 5 mmol/L; Blood Urea Nitrogen 12 mg/dL (7-17); Calcium 9.4 mg/dL (8.4-10.2); Carbon Dioxide 25 mmol/L (22-30); Chloride 109 mmol/L (98-107); Glucose 90 mg/dL (74-99); Non-African American GFR(CKD) >90 (>60 ml/min/1.73 sqM); Potassium 4.3 mmol/L (3.5-5.1); Sodium 139 mmol/L (137-145); Total Bilirubin 0.5 mg/dL (0.2-1.3); Total Protein 7.2 g/dL (6.3-8.2)
[2024-04-17 23:34] LABS: Amorphous Sediment,Urine Occasional /hpf; Appearance,Urine Cloudy (Clear); Bacteria,Urine Occasional /hpf; Bilirubin,Urine Negative (Negative); Blood,Urine Negative (Negative); Color,Urine Light Yellow; Glucose,Urine (UA) Negative (Negative); Hyaline Casts,Urine 1 /lpf (0-2); Ketones,Urine Negative (Negative); Leukocyte Esterase,Urine Negative (Negative); Mucus,Urine Moderate /hpf; Nitrite,Urine Negative (Negative); Protein,Urine Trace (Negative); RBC,Urine 1 /hpf (0-5); Specific Gravity,Urine 1.018 (1.001-1.035); Squamous Epithelial Cell,Urine 10 /hpf (0-4); Urobilinogen,Urine <2.0 mg/dL (<2.0); WBC,Urine 4 /hpf (0-5)
[2024-04-17] MEDS: KETOROLAC 15 MG/ML 1 ML VIAL IVP STA (23:44)
--- NOTE | 2024-04-18 00:27 | CT ---
EXAMINATION TYPE: CT abdomen pelvis w con DATE OF EXAM: 04/18/2024 HISTORY: Pt presents to ED due to R flank pain. Pt states it started 8 days ago. Pt just finished ant ibiotics (keflex) and it is not any better. Pt presents to ED due to R flank pain. Pt states it start ed 8 days ago. Pt just finished antibiotics (keflex) and it is not any better. CT DLP: 831mGycm Automated Exposure Control for Dose Reduction was Utilized. CONTRAST: CT scan of the abdomen and pelvis is performed with IV Contrast, patient injected with 100 mL of Isov ue 300. COMPARISON: Prior CT 2010 FINDINGS: LUNG BASES: No significant abnormality is appreciated. LIVER/GB: The gallbladder is contracted on current study without surrounding fluid or fat stranding. PANCREAS: No significant abnormality is seen. SPLEEN: No significant abnormality is seen. ADRENALS: No significant abnormality is seen. KIDNEYS: Symmetric cortical medullary uptake and excretion without Hydronephrosis identified bilatera lly. BOWEL: Surgical changes at base of cecum are redemonstrated. No abnormal small or large bowel dilatat ion. UTERUS/ADNEXA: Anteverted uterus. LYMPH NODES: A few prominent but subcentimeter lymph nodes throughout the central mesentery. Slight s wirling is noted near axial image 40. Cannot rule out internal hernia. OSSEOUS STRUCTURES: No significant abnormality is seen. OTHER: No significant additional abnormality is seen. IMPRESSION: No significant acute finding is seen to account for patient's clinical symptoms of right- sided flank pain. [facility], , 04/18/2024 12:24 AM
--- NOTE | 2024-04-18 00:51 | ED ---
General Adult HPI - General Chief complaint: Urogenital Stated complaint: flank pain Time Seen by Provider: 04/17/24 22:41 Source: patient Limitations: no limitations - History of Present Illness Initial comments: This patient is a 38-year-old woman who presents with right flank pain. Patient states she was having symptoms similar to this a little over a week ago, and was given course of Keflex for suspected urinary tract infection. Patient states that the symptoms had improved while she was taking the antibiotic but then after she finished the medication the symptoms recurred. Patient has also been feeling warm like she may have a fever. She has not noted vomiting or diarrhea. No symptoms to the chest or to the legs. Onset/Timin -: week(s) Location: back, abdomen, right Radiation: non-radiation Quality: aching Consistency: constant Improves with: none Worsens with: none Associated Symptoms: fever/chills Treatments Prior to Arrival: other (Course of Keflex) - Related Data Home Medications Medication Instructions Recorded Confirmed Multivitamins, Thera [Multivitamin 1 tab PO DAILY 07/19/19 07/23/19 (formulary)] Previous Rx's Medication Instructions Recorded Cephalexin [Keflex] 500 mg PO Q6HR #28 cap 06/30/23 Nitrofurantoin Monohyd/M-Cryst 100 mg PO Q12HR #14 cap 01/11/24 [Macrobid] Allergies Allergy/AdvReac Type Severity Reaction Status Date / Time No Known Allergies Allergy Verified 04/17/24 22:35 Review of Systems ROS Statement: Those systems with pertinent positive or pertinent negative responses have been documented in the HPI. ROS Other: All systems not noted in ROS Statement are negative. Constitutional: Reports: fever. Denies: chills, weakness Respiratory: Denies: cough, dyspnea Cardiovascular: Denies: chest pain, palpitations, edema Gastrointestinal: Reports: as per HPI, abdominal pain. Denies: nausea, vomiting, diarrhea, melena, hematochezia Genitourinary: Denies: dysuria, frequency, hematuria, discharge, abnormal menses Musculoskeletal: Denies: back pain Skin: Denies: rash Neurological: Denies: headache, weakness Past Medical History Past Medical History: No Reported History History of Any Multi-Drug Resistant Organisms: None Reported Past Surgical History: Appendectomy, Section, Orthopedic Surgery Additional Past Surgical History / Comment(s): right ankle with screws and pins, carcinoid tumor small intestine Past Anesthesia/Blood Transfusion Reactions: No Reported Reaction Past Psychological History: No Psychological Hx Reported Smoking Status: Never smoker Past Alcohol Use History: None Reported Past Drug Use History: None Reported - Past Family History Mother Family Medical History: Hypertension General Exam Limitations: no limitations General appearance: alert, in no apparent distress Head exam: Present: atraumatic, normocephalic Eye exam: Present: normal appearance. Absent: scleral icterus, conjunctival injection Neck exam: Present: normal inspection Respiratory exam: Present: normal lung sounds bilaterally. Absent: respiratory distress, wheezes, rales, rhonchi, stridor, accessory muscle use Cardiovascular Exam: Present: regular rate, normal rhythm, normal heart sounds. Absent: systolic murmur, diastolic murmur, rubs, gallop GI/Abdominal exam: Present: soft, tenderness (Mild right upper abdominal tenderness, no rebound or guarding). Absent: distended, guarding, rebound, rigid, mass, pulsatile mass, hernia Extremities exam: Present: normal inspection, normal capillary refill. Absent: pedal edema, calf tenderness Back exam: Present: normal inspection. Absent: CVA tenderness (R), CVA tenderness (L) Neurological exam: Present: alert Skin exam: Present: warm, dry, intact, normal color. Absent: rash Course Vital Signs 04/17/24 22:36 Temperature 98.7 F Pulse Rate 84 Respiratory 18 Rate Blood Pressure 133/77 O2 Sat by Pulse 98 Oximetry Medical Decision Making - Medical Decision Making Patient is a 38-year-old woman with right flank pain. The patient's urinalysis unremarkable. There is still is some persistent right-sided pain following ketorolac. Patient sent for CT scan given the persistence of the symptoms. The CT scan suggestive of possible internal hernia but no obstruction. Was pt. sent in by a medical professional or institution (, PA, MAINTENANCE ASSOCIATE, urgent care, hospital, or snf...) When possible be specific @ -[No] Did you speak to anyone other than the patient for history (EMS, parent, family, police, friend...)? What history was obtained from this source @ -[No] Did you review nursing and triage notes (agree or disagree)? Why? @ -[I reviewed and agree with nursing and triage notes] Were old charts reviewed (outside hosp., previous admission, EMS record, old EKG, old radiological studies, urgent care reports/EKG's, snf records)? Report findings @ -[No old charts were reviewed] Differential Diagnosis (chest pain, altered mental status, abdominal pain women, abdominal pain men, vaginal bleeding, weakness, fever, dyspnea, syncope, headache, dizziness, GI bleed, back pain, seizure, CVA, palpatations, mental health, musculoskeletal)? @ -[Differential Abdominal Pain Women: Appendicitis, Cholecystitis, diverticulosis, ischemic bowel, pancreatitis, hepat itis, UTI, gastroenteritis, AAA, incarcerated hernia, bowel obstruction, constipation, inflammatory bowel, hepatitis, peptic ulcer disease, splenic infarction, perforated viscus, vulvitis, ovarian torsion, PID, kidney stone, placenta abruption, this is not meant to be an all-inclusive list EKG interpreted by me (3pts min.). @ -[As above] X-rays interpreted by me (1pt min.). @ -[None done] CT interpreted by me (1pt min.). @ -[ U/S interpreted by me (1pt. min.). @ -[None done] What testing was considered but not performed or refused? (CT, X-rays, U/S, labs)? Why? @ -[None] What meds were considered but not given or refused? Why? @ -[None] Did you discuss the management of the patient with other professionals (professionals i.e. , PA, MAINTENANCE ASSOCIATE, lab, RT, psych nurse, social media marketer, shift supervisor melting, teacher, quarantine officer, case mgr)? Give summary @ -[No] Was smoking cessation discussed for >3mins.? @ -[No] Was critical care preformed (if so, how long)? @ -[No] Were there social determinants of health that impacted care today? How? (Homelessness, low income, unemployed, alcoholism, drug addiction, transportation, low edu. Level, literacy, decrease access to med. care, nursing home, rehab)? @ -[No] Was there de-escalation of care discussed even if they declined (Discuss DNR or withdrawal of care, Hospice)? DNR status @ -[No] What co-morbidities impacted this encounter? (DM, HTN, Smoking, COPD, CAD, Cancer, CVA, ARF, Chemo, Hep., AIDS, mental health diagnosis, sleep apnea, morbid obesity)? @ -[History of carcinoid tumor Was patient admitted / discharged? Hospital course, mention meds given and route, prescriptions, significant lab abnormalities, going to OR and other pertinent info. @ -[Patient is 38-year-old woman with flank pain. The patient's workup does reveal CT with possibility of internal hernia. Patient with no gastro intestinal signs or symptoms. Will follow-up with her surgeon. Discussed appropriate follow-up and return parameters Undiagnosed new problem with uncertain prognosis? @ -[No] Drug Therapy requiring intensive monitoring for toxicity (Heparin, Nitro, Insulin, Cardizem)? @ -[No] Were any procedures done? @ -[No] Diagnosis/symptom? @ -[Acute flank pain Acute, or Chronic, or Acute on Chronic? @ -[Acute flank pain Uncomplicated (without systemic symptoms) or Complicated (systemic symptoms)? @ -[Uncomplicated Side effects of treatment? @ -[No] Exacerbation, Progression, or Severe Exacerbation? @ -[No] Poses a threat to life or bodily function? How? (Chest pain, [place], CA, pneumonia, PE, COPD, DKA, ARF, appy, cholecystitis, CVA, Diverticulitis, Homicidal, Suicidal, threat to staff... and all critical care pts) @ -[No] - Lab Data Result diagrams: 04/17/24 22:45 04/17/24 22:45 Lab Results 04/17/24 04/17/24 04/17/24 Range/Units 22:40 22:40 22:40 WBC (3.8-10.6) k/uL RBC (3.80-5.40) m/uL Hgb (11.4-16.0) gm/dL Hct (34.0-46.0) % MCV (80.0-100.0) fL MCH (25.0-35.0) pg MCHC (31.0-37.0) g/dL RDW (11.5-15.5) % Plt Count (150-450) k/uL MPV Neutrophils % % Lymphocytes % % Monocytes % % Eosinophils % % Basophils % % Neutrophils # (1.3-7.7) k/uL Lymphocytes # (1.0-4.8) k/uL Monocytes # (0-1.0) k/uL Eosinophils # (0-0.7) k/uL Basophils # (0-0.2) k/uL Sodium (137-145) mmol/L Potassium (3.5-5.1) mmol/L Chloride (98-107) mmol/L Carbon Dioxide (22-30) mmol/L Anion Gap mmol/L BUN (7-17) mg/dL Creatinine (0.52-1.04) mg/dL Est GFR (CKD-EPI)AfAm (>60 ml/min/1.73 sqM) Est GFR (CKD-EPI)NonAf (>60 ml/min/1.73 sqM) Glucose (74-99) mg/dL Calcium (8.4-10.2) mg/dL Total Bilirubin (0.2-1.3) mg/dL AST (14-36) U/L ALT (4-34) U/L Alkaline Phosphatase (38-126) U/L Total Protein (6.3-8.2) g/dL Albumin (3.5-5.0) g/dL Urine Color Light Yellow Urine Appearance Cloudy H (Clear) Urine pH 7.0 (5.0-8.0) Ur Specific [place] 1.018 (1.001-1.035) Urine Protein Trace H (Negative) Urine Glucose (UA) Negative (Negative) Urine Ketones Negative (Negative) Urine Blood Negative (Negative) Urine Nitrite Negative (Negative) Urine Bilirubin Negative (Negative) Urine Urobilinogen <2.0 (<2.0) mg/dL Ur Leukocyte Esterase Negative (Negative) Urine RBC 1 (0-5) /hpf Urine WBC 4 (0-5) /hpf Ur Squamous Epith Cells 10 H (0-4) /hpf Amorphous Sediment Occasional H (None) /hpf Urine Bacteria Occasional H (None) /hpf Hyaline Casts 1 (0-2) /lpf Urine Mucus Moderate H (None) /hpf Urine HCG, Qual Not Detected (Not Detectd) Chlamydia DNA (PCR) Negative (Negative) N.gonorrhoeae DNA Probe Negative (Negative) 04/17/24 04/17/24 Range/Units 22:45 22:45 WBC 10.2 (3.8-10.6) k/uL RBC 5.28 (3.80-5.40) m/uL Hgb 14.6 (11.4-16.0) gm/dL Hct 43.6 (34.0-46.0) % MCV 82.7 (80.0-100.0) fL MCH 27.7 (25.0-35.0) pg MCHC 33.5 (31.0-37.0) g/dL RDW 12.4 (11.5-15.5) % Plt Count 251 (150-450) k/uL MPV 7.6 Neutrophils % 61 % Lymphocytes % 31 % Monocytes % 4 % Eosinophils % 1 % Basophils % 1 % Neutrophils # 6.3 (1.3-7.7) k/uL Lymphocytes # 3.2 (1.0-4.8) k/uL Monocytes # 0.4 (0-1.0) k/uL Eosinophils # 0.1 (0-0.7) k/uL Basophils # 0.1 (0-0.2) k/uL Sodium 139 (137-145) mmol/L Potassium 4.3 (3.5-5.1) mmol/L Chloride 109 H (98-107) mmol/L Carbon Dioxide 25 (22-30) mmol/L Anion Gap 5 mmol/L BUN 12 (7-17) mg/dL Creatinine 0.80 (0.52-1.04) mg/dL Est GFR (CKD-EPI)AfAm >90 (>60 ml/min/1.73 sqM) Est GFR (CKD-EPI)NonAf >90 (>60 ml/min/1.73 sqM) Glucose 90 (74-99) mg/dL Calcium 9.4 (8.4-10.2) mg/dL Total Bilirubin 0.5 (0.2-1.3) mg/dL AST 28 (14-36) U/L ALT 23 (4-34) U/L Alkaline Phosphatase 59 (38-126) U/L Total Protein 7.2 (6.3-8.2) g/dL Albumin 4.5 (3.5-5.0) g/dL Urine Color Urine Appearance (Clear) Urine pH (5.0-8.0) Ur Specific [place] (1.001-1.035) Urine Protein (Negative) Urine Glucose (UA) (Negative) Urine Ketones (Negative) Urine Blood (Negative) Urine Nitrite (Negative) Urine Bilirubin (Negative) Urine Urobilinogen (<2.0) mg/dL Ur Leukocyte Esterase (Negative) Urine RBC (0-5) /hpf Urine WBC (0-5) /hpf Ur Squamous Epith Cells (0-4) /hpf Amorphous Sediment (None) /hpf Urine Bacteria (None) /hpf Hyaline Casts (0-2) /lpf Urine Mucus (None) /hpf Urine HCG, Qual (Not Detectd) Chlamydia DNA (PCR) (Negative) N.gonorrhoeae DNA Probe (Negative) Disposition Clinical Impression: Flank pain Disposition: HOME SELF-CARE Condition: Good Instructions (If sedation given, give patient instructions): Flank Pain (ED) Is patient prescribed a controlled substance at d/c from ED?: No Referrals: None,Stated [Primary Care Provider] - 1-2 days Richie Wilson MD [Medical Doctor] - 1-2 days
[2024-04-18 12:59] LABS: C. trachomatis,PCR Negative (Negative); N. gonorrhoeae,PCR Negative (Negative)
== END 2024-04-18 01:00 | disposition home or self-care (01) ==
LOC: EC 22:34
DX: R10.11 Right upper quadrant pain (principal); Z86.012 Personal history of benign carcinoid tumor
CPT/HCPCS: 36415; 80053; 85025; 81001; 81025; 87491; 87591; 87086; 74177; 99284; 96374; J1885; Q9967